=== PATIENT | female | born 1965 | race Caucasian/White ===

== ENCOUNTER → 2018-12-19 13:00 | Outpatient (CLI) | payer OTHER, SELFPAY ==
[2013-07-22 02:31] VITALS: BMI 28.3
--- NOTE | 2018-12-19 | IMM_PTH ---
PATIENT: TOM MAY LOC: [facility] U#:[id number] AGE/SX: 59/F ROOM: RE12/19/[address]: Dr. Xiomara Miguel MD : 1965 BED: DIS: SPEC #: [id number] RECD: 12/23/18 10:00 STATUS: ROSALBA REDaphne #: [id number] SIMI: 12/19/18 00:[address]: Xiomara Miguel DEPT: IMMUNOHISTOCHEMISTRY RECD BY: Alisia Parrish ENTERED: 12/23/18 10:01 SP TYPE: IMMUNO OTHR DR: Dr. Moses Grey MD Tissues: Thyroid gland, NOS Procedures: CK19 (initial) CALPONIN-1 (add) CD56 (add) HBME (add) PHYSICIAN & INSTITUTION [place] [id number] SPECIMEN INFORMATION: Tissue Source: Needle core biopsy, right thyroid Clinical Info: Right thyroid nodules Specimen Number: [id number] CPT code: 11596, 36696 x3 METHODOLOGY: Deparaffinized sections of prefer/formalin-fixed tissue or PAP/DQ stained slides are incubated with monoclonal/polyclonal antibodies/oligonucleotide probes. Localization is made via biotin free immunoperoxidase method. Appropriate controls are performed and reacted as expected. Results on target cell population are indicated in the following table: RESULTS: ANTIBODY / CLONE RESULT CK19 (A53-B/A2.26) negative HBME1 (HBME-1) negative Calponin-1 (TS133J) negative CD56 (123C3.D5) positive These tests were developed and their performance characteristics determined by [facility]. They may not have been cleared or approved by the U.S. Food and Drug Administration. The FDA has determined that such clearance or approval is not necessary. INTERPRETATION: Right thyroid nodule, needle core biopsy: Consistent with benign follicular nodule. LO:jayden 12/24/18
--- NOTE | 2018-12-19 13:00 | FLU_PTH ---
PATIENT: TOM MAY LOC: [facility] U#:[id number] AGE/SX: 59/F ROOM: RE12/19/[address]: Dr. Xiomara Miguel MD : 1965 BED: DIS: SPEC #: [id number] RECD: 12/19/18 16:59 STATUS: ROSALBA PATINODaphne #: [id number] SIMI: 12/19/18 13:[address]: Xiomara Miguel DEPT: CYTOLOGY RECD BY: Alisia Parrish ENTERED: 12/22/18 15:08 SP TYPE: Fluid OTHR DR: Dr. Moses Grey MD Tissues: Thyroid gland, NOS Procedures: Special Stain Group II Surgery Specimen Level IV Cytospin Fluid HEADER OPERATION: Ultrasound guided fine needle aspiration and needle core biopsy, right thyroid PRE-OP DIAGNOSIS: Right thyroid nodules TISSUE SUBMITTED: Right thyroid nodule FNA in formalin (cyst) DIAGNOSIS CYTOLOGY Fine needle aspiration, right thyroid nodule (Cytospin and cell block): Adequate for evaluation. Negative, consistent with benign follicular nodule. AM:jayden 12/23/18 COMMENT Please also see corresponding surgical case [id number]. Case has been reviewed in consultation with Dr. Talamantes who concurs with the above diagnosis. IDC:SJ CYTOLOGY STUDY Slides are reviewed. CYTOLOGY GROSS Received is 40 ml of cloudy brown fluid labeled with the patient's name and and designated per the requisition as right thyroid nodule FNA. Submitted for cytology preparation including cell block. /RB:cc 12/22/18 TC: 5 CPT: 84254, 62657
--- NOTE | 2018-12-19 13:00 | ASPIGT_PTH ---
PATIENT: TOM MAY LOC: [facility] U#:[id number] AGE/SX: 59/F ROOM: RE12/19/[address]: Dr. Xiomara Miguel MD : 1965 BED: DIS: SPEC #: [id number] RECD: 12/19/18 16:59 STATUS: ROSALBA YAS #: [id number] SIMI: 12/19/18 13:[address]: Xiomara Miguel DEPT: SURGICAL PATHOLOGY RECD BY: Alisia Parrish ENTERED: 12/22/18 15:11 SP TYPE: ASP RAD OTHR DR: Dr. Moses Grey MD Tissues: Thyroid gland, NOS Procedures: FNA Specimen Adequacy Special Stain Group II Surgery Specimen Level IV Imprint (control) HEADER OPERATION: Ultrasound guided fine needle aspiration and needle core biopsy, right thyroid PRE-OP DIAGNOSIS: Right thyroid nodules TISSUE SUBMITTED: Needle core biopsy, right thyroid MICROSCOPIC DIAGNOSIS Right thyroid, ultrasound guided needle core biopsy: Consistent with benign follicular nodule. AM:jayden 12/23/18 COMMENT Immunohistochemistry ([id number]) supports the above diagnosis. Fragments of benign skeletal muscle and rare fragment of skin are also present in the biopsy. Please also see corresponding cytology case [id number]. Case has been reviewed in consultation with Dr. Talamantes who concurs with the above diagnosis. IDC:LO MICROSCOPIC DESCRIPTION Slides are reviewed. GROSS DESCRIPTION Received is one container labeled with the patient name and designated right thyroid needle core biopsy. The specimen consists of multiple fragments of frias soft tissue that in aggregate measure 1 x 01 x less than 0.1 cm. The specimen is totally submitted in one cassette. /LO:jayden 12/22/18 TC: 5 CPT: 57470
== END ==
PROVIDERS: Family Provider Family Medicine; PCP Family Medicine; Referring Provider Surgery; Visit Provider Surgery
DX: E04.1 Nontoxic single thyroid nodule (principal)
CPT/HCPCS: 88108; 88172; 88305; 88313; 88341; 88342

== ENCOUNTER → 2019-07-02 | Outpatient (CLI) | payer OTHER, SELFPAY ==
--- NOTE | 2019-07-02 | THYROID_PTH ---
PATIENT: TOM MAY LOC: [facility] U#:[id number] AGE/SX: 53/F ROOM: RE07/02/[address]: Dr. Xiomara Miguel MD : 1965 BED: DIS: 07/02/2019 SPEC #: [id number] RECD: 07/02/19 12:56 STATUS: ROSALBA YAS #: [id number] SIMI: 07/02/19 00:[address]: Xiomara Miguel DEPT: SURGICAL PATHOLOGY RECD BY: Rufus Lyn ENTERED: 07/02/19 12:57 SP TYPE: THYROID OTHR DR: Dr. Moses Grey MD Tissues: Thyroid gland, NOS Procedures: Surgery Specimen Level IV HEADER OPERATION: Right thyroid nodule core biopsy PRE-OP DIAGNOSIS: Right thyroid nodule TISSUE SUBMITTED: Right thyroid nodule core biopsy MICROSCOPIC DIAGNOSIS Right thyroid nodule, core biopsy: Consistent with benign follicular nodule. See comment. LO:sharee 07/03/19 COMMENT The findings may represent adenomatoid nodule. Follicular neoplasm can not be entirely excluded. Correlation with clinical, radiologic findings and appropriate follow up are necessary. Please make reference to previous specimens ([id number]) fine needle aspiration, right thyroid nodule with diagnosis of consistent with benign follicular nodule and ([id number]) right thyroid, ultrasound-guided needle core biopsy with diagnosis of consistent with benign follicular nodule. This case is discussed with Dr. Miguel on 07/03/19. MICROSCOPIC DESCRIPTION Slides are reviewed. GROSS DESCRIPTION Received is one container labeled with the patient's name and not further designated. The specimen consists of multiple irregular fragments of frias soft tissue that in aggregate measure 1 x 0.1 x <0.1 cm. The specimen is totally submitted in one cassette. / LO:sharee 07/02/19 TC:5 CPT: 33597
== END | disposition home or self-care (01) ==
LOC: LABSPEC 12:32
PROVIDERS: PCP Family Medicine; Visit Provider Surgery
DX: E04.1 Nontoxic single thyroid nodule (principal)
CPT/HCPCS: 88305

== ENCOUNTER 2019-10-20 14:23 | Observation (INO) | payer OTHER, SELFPAY ==
--- NOTE | 2019-10-15 10:11 | EKG12_ITS ---
Test Reason : PREOP Blood Pressure : / mmHG Vent. Rate : 073 BPM Atrial Rate : 073 BPM P-R Int : 146 ms QRS Dur : 084 ms QT Int : 388 ms P-R-T Axes : 062 056 049 degrees QTc Int : 427 ms Normal sinus rhythm Normal ECG Confirmed by YING BRAXTON, BASSAM ([id number]), material expeditor DENISE GALLAGHER ([id number]) on 10/19/2019 9:58:14 AM Referred By: Xiomara Miguel Confirmed By:VI HE MD
--- NOTE | 2019-10-19 16:39 | HP.PCM_ITS ---
History and Physical Date of Admission: 10/20/19 Sena Casey 1965 ??? CHIEF COMPLAINT: right thyroid nodule ? HPI: The patient is a 53 year old female presents with palpable right thyroid lesion. Denies taking any previous thyroid hormones. Denies exposure to unusual radiation. Denies swallowing problems. Denies hoarseness. Denies globus symptoms. Denies thyroid cancer in family. Mother had lymphoma. ? Denies TOB Denies history of NM/CVA. Has acid reflux - in the throat has a bubble sensation. ? US guided FNA 07/02/2019 MICROSCOPIC DIAGNOSIS Right thyroid nodule, core biopsy: Consistent with benign follicular nodule. COMMENT The findings may represent adenomatoid nodule. Follicular neoplasm can not be entirely excluded. Correlation with clinical, radiologic findings and appropriate follow up are necessary. ? ? PAST MEDICAL HISTORY ? Heart murmur ? ? Other and unspecified ovarian cyst ? ? Unspecified asthma(493.90) ?Asthma CHILDHOOD ? PAST SURGICAL HISTORY ? DELIVERY ONLY ? 12/23/98, 11/30/2010 ? failure to progress ? COLONOSCOPY ? 10/24/2018 ? EGD ? 10/24/2018 ? EXCISION NOSE POLYP(S),SIMPLE ? ? ? PAST SURGICAL HISTORY OF ? ? ? right elbow repair ? PAST SURGICAL HISTORY OF ? 2000 ? EXCISION OF LESION ON RIGHT CHIN ? REMOVE TONSILS/ADENOIDS,<12 Y/O ? Current Outpatient Medications: ferrous sulfate 325 mg (65 mg iron) tablet Take 1 tablet by mouth once daily. omeprazole (PRILOSEC) 20 mg capsule Take 1 capsule by mouth daily before breakfast. 1/2 hr before meal. COMPOUNDED PRESCRIPTION Balance B tablet. ascorbic acid/collagen hydr (COLLAGEN PLUS VITAMIN C ORAL) Take by mouth. multivit,thx,calcium,iron,mins (MULTIVITAMIN AND MINERAL ORAL) Take 1 tablet by mouth once daily. ? ? ALLERGIES: Sulfa (Sulfonamide Antibiotics) ? PERSONAL HISTORY: Social History Socioeconomic History Marital status: Spouse name: Kane Number of children: 3 Years of education: 12 Highest education level: Not on file Occupational History Occupation: INSURANCE BILLING CLERK Employer: [employer] (formerly [employer]) Comment: multi-handicap K-5 Tobacco Use Smoking status: Never Smoker Smokeless tobacco: Never Used Substance and Sexual Activity Alcohol use: Yes Comment: occasionally,NOT WHILE Drug use: No FAMILY HISTORY ? Cancer Mother lymphoma- ? Hypertension Father ? ? No Known Problems Brother ? ? No Known Problems Brother ? ? No Known Problems Sister ? ? Heart Maternal Grandmother murmur ? Coronary Artery Disease Maternal Grandfather ? ? Cancer Paternal Grandfather? colon cancer ? Hypertension Paternal Grandmother ? ? Osteoporosis Paternal Grandmother ? ? other (anemia) Paternal Grandmother ? ? ? REVIEW OF SYSTEMS: Constitutional: Denies episodes of fever and night sweats. Normal appetite. Neuro: ?Denies DONG, vertigo, dizziness and imbalance. Denies symptoms of neuropathy. HEENT: No recent change in voice, vision or hearing. Resp: Denies cough, wheeze and hemoptysis. Denies shortness of breath at rest. Denies VELIZ. CVS: Denies exertional chest pain, PND, orthopnea and LE edema. GI: Denies dysgeusia. Denies symptoms of stomatitis. Denies dysphagia and odynophagia. Denies reflux, n/v, change in bowel habits and abdominal pain. : Denies dysuria or gross hematuria. No symptoms of bladder outlet obstruction. Endo: Denies hot flashes. Denies polyuria and polydipsia. Denies heat and cold intolerance. Musculoskeletal: Denies bone, back, joint and muscular pain. Derm: Denies rash. Denies jaundice and diffuse pruritis. Heme: Denies unusual bleeding and unexplained bruising. Psych: Normal mood. ? ? PHYSICAL EXAMINATION: General: The patient is 53 year old female, well nourished, well hydrated in no acute distress. The patient is oriented to time, place, and person. VITALS: Blood pressure 120/78, pulse 93, temperature 36.6 ?C (97.8 ?F), weight 78.5 kg (173 lb), SpO2 100 %. Body mass index is 30.27 kg/m?. Head ? Normocephalic. EOM intact with sclera clear and no icterus noted. Mouth with mucus membranes moist. Neck - supple with no jugular venous distention noted. Trachea is midline. No carotid bruits noted. Right thyroid enlargement but no discrete nodules noted. No masses noted. Lungs ? clear to auscultation. Normal breath sounds. No rales/rhonchi/wheezing noted. No labored breathing noted, such as retractions. No cough heard. Heart ? normal S1 and S2 auscultated. No rubs/clicks/murmurs noted. Regular rate. Abdomen ? soft and benign. Normal bowel sounds. Extremities ? no calf tenderness noted. No pitting edema noted. . Skin ? normal skin integrity. Lymph ? no cervical adenopathy detected, no supraclavicular adenopathy detected, no axillary adenopathy detected Neurological ? gait normal, no focal deficits noted. Psych ? calm and appropriate RADIOLOGIC STUDIES: As Noted ? ? IMPRESSION: right thyroid nodule ? PLAN: I have discussed the above with the patient. I have offered right thyroid lobectomy and isthmusectomy. She understands that she may need further surgery if thyroid cancer is found. I have described the surgery to the patient in layman?s terms. I have counseled the patient as to the risks of surgery, including but not limited to: infection, bleeding, seroma, scar tissue, cosmetic deformity, injury to any blood vessels/nerves, injury to the recurrent laryngeal nerves and their sequelae, injury to the parathyroid glands and their sequelae, bleeding requiring further surgery, etc. ? the patient understands. The patient was offered a surgery/procedure. The provider and patient have discussed in detail the risk of exposure to and/or potential harm posed by the COVID-19 virus with having a surgery/procedure at this time versus the risk of delaying the surgery/procedure. It is not possible to know either the risk of delaying the surgery or procedure or chance of getting an infection with perfect accuracy, but a joint decision was made between the patient and the provider to proceed at this time with the scheduled surgery/procedure. She agrees to proceed. I have answered all their questions to their satisfaction and the patient has no further questions.
[2019-10-20] VITALS (8 sets, daily range): BP systolic 123–148; BP diastolic 69–89; PULSE 59–91; RESP 16–18; TEMP 36.3–36.7; O2SAT 95–100; BMI 28.6
--- NOTE | 2019-10-20 | THYROID_PTH ---
PATIENT: TOM MAY LOC: [facility] U#:[id number] AGE/SX: 53/F ROOM: [place]315 RE10/20/[address]: Dr. Xiomara Miguel MD : 1965 BED: 1 DIS: 10/21/2019 SPEC #: [id number] RECD: 10/20/19 13:53 STATUS: ROSALBA REQ #: [id number] SIMI: 10/20/19 00:[address]: Xiomara Miguel DEPT: SURGICAL PATHOLOGY RECD BY: Diane Tristan ENTERED: 10/21/19 07:37 SP TYPE: THYROID OTHR DR: Dr. Moses Grey MD Tissues: A - Thyroid gland, NOS B - Thyroid gland, NOS Procedures: Frozen Section (charge) Surgery Specimen Level IV Surgery Specimen Level V HEADER OPERATION: Thyroid lobectomy, isthmusectomy PRE-OP DIAGNOSIS: Right thyroid nodule, follicular neoplasm TISSUE SUBMITTED: A - Rule out right thyroid tissue, FS at 1349, B - Right lobe of thyroid and isthmus FROZEN SECTION DIAGNOSIS A. Rule out thyroid tissue: Thyroid tissue. SJ:sharee 10/20/19 MICROSCOPIC DIAGNOSIS A. Rule out thyroid tissue, biopsy: Benign thyroid tissue. B. Right lobe of thyroid and isthmus, thyroid lobectomy and isthmusectomy: Multinodular goiter with a dominant adenomatoid nodule (3 cm in greatest dimension). Focal mild chronic inflammation. SJ:sharee 10/22/19 COMMENT Please make reference to previous specimens ([id number]) fine needle aspiration, right thyroid nodule with diagnosis of consistent with benign follicular nodule and ([id number]) right thyroid, ultrasound-guided needle core biopsy with diagnosis of benign follicular nodule and ([id number]) right thyroid nodule, core biopsy with diagnosis of consistent with benign follicular nodule. Case has been reviewed in consultation with Dr. Saenz who concurs with the above diagnosis. IDC:AM MICROSCOPIC DESCRIPTION Slides are reviewed. GROSS DESCRIPTION A - Received fresh for frozen section diagnosis labeled with the patient's name is a specimen designated rule out thyroid tissue. The specimen consists of a piece of frias-pink soft tissue measuring 1 x 2.5 x 0.1 cm. The entire specimen is submitted for frozen section diagnosis in one cassette. / B - Received in fixative is one container labeled with the patient's name and designated right lobe of thyroid and isthmus. The specimen consists of a thyroid lobectomy specimen in two pieces weighing in aggregate 11.1 gm. The lobectomy specimen measures 4 x 2 x 2.5 cm and detached piece of tissue measures 2 x 1 x 1 cm. The thyroid lobe is inked as follows: anterior surface - blue, posterior surface - black. Section of the detached piece of tissue consistent with isthmus does not reveal any mass lesion. Section of the thyroid lobe reveals a hemorrhagic nodule covering almost the entire lobe measuring 3 x 2.5 x 1.5 cm. The entire specimen is submitted in ten cassettes as follows: 1 & 2 - detached piece of tissue, 3-10 - thyroid lobe (3 containing most superior portion and 10 containing most inferior portion). / LO:sharee 10/21/19 TC:5 CPT: 09327, 92781, 96636
[2019-10-20 10:34] LABS: Internal QC Validated? YES +Cl - CLEAR BKGD; Pregnancy, Urine Negative Negative
[2019-10-20] MEDS: Lactated Ringers 1,000 ML 75 ML IV ×3 (11:00→18:02)
--- NOTE | 2019-10-20 11:59 | OP.PCM_ITS ---
Report of Operation Date of Procedure: 10/20/19 Pre-Operative Diagnosis: right thyroid nodule - follicular neoplasm of uncertain behavior Post-Operative Diagnosis: same - pathology pending Surgery/Procedure Performed:: right thyroid lobectomy and isthmusectomy Description of Surgical Findings:: large right lobe of thyroid gland ham marker: Ml Mendez Type of Anesthesia:: General Anesthesiologist: Erika Luna Specimen's removed: right thyroid gland and isthmus Drains: 10 Fr round passive drain Estimated Blood Loss (mL): 40 Fluids Replaced: 1300 ml RL Description of Procedure: After informed consent was obtained, the patient was brought to the Operating Room. Appropriate time out protocol was followed. She was then placed in the supine position. She was then placed under GETA. The patient was then positioned with arms tucked and appropriate padding, with neck extension, and in the slightly reverse Trendelenburg position. The ultrasound machine was used for real time imaging. The transducer was placed on the patient's neck to delineate the right lobe of the thyroid gland so as to smith the skin for the optimum incision site for the procedure. The neck and upper chest were then prepped with a sterile surgical skin preparation and appropriate sterile surgical drapes were placed. The previous site of the marked skin incision was identified and a low cervical collar incision was made with a 15 blade scalpel and carried down to the subcutaneous tissues using Bovie in the electrocautery mode. The platysma was divided along the incision and then flaps were created superiorly to the cricoid cartilage level and inferiorly to the sternal notch. The fascia overlying the strap muscles was then divided along the midline. The right thyroid gland was thusly approached. The superior pole vessels were taken were dissected out individually and then ligaclips were placed and then the vessels were transected. The thyroid gland was then rotated medially the middle vein was identified and ligated with ligaclips and use of the Harmonic scalpel. The inferior pole was then identified and the vessels were ligated with ligaclips and use of the Harmonic scalpel. The recurrent laryngeal nerve was then identified along its course and protected from injury. The superior pole was then retracted inferiorly and the pole vessels were ligated with ligaclips and then transected. The right lobe was smaller than the left and thus dissection was easier. The thyroid gland was rotated medially and then dissected off the trachea. This was carefully done to avoid any injury to the recurrent laryngeal nerves. The inferior parathyroid gland and the superior parathyroid glands were identified and also protected. The right thyroid gland was then completely removed and forward to pathology for analysis. Hemostasis was carefully controlled with electrocautery avoiding any injury to the recurrent laryngeal nerves and the parathyroid glands. For minimal muscular oozing, Surgicel was used for hemostasis. No active bleeding was noted at time of closure. A small 10 Croatian drain was then placed in the right thyroid bed and brought out through a separate stab incision. The fascia of the strap muscles was then reapproximated along the midline using Vicryl suture. The platysma muscle was then reapproximated in a transverse fashion using interrupted 2-0 Vicryl suture. The skin incision was then reapproximated using 4-0 Monocryl in a running subcuticular fashion. The drain was brought out through the middle portion of the incision and sutured to the skin using nylon suture. The skin closure was reinforced using Dermibond and the drain sutured to the skin using nylon suture. Prior to extubation, a glide scope examination was done. The vocal cords were noted to adduct bilaterally. The patient was then extubated. She was brought to the Recovery Room in stable condition. - Complications none noted - Admit VTE Documentation VTE Present on Admission: Yes VTE Mechan Device Prophylaxis: SCD's
[2019-10-20] MEDS: HYDROcodone Bitartrate/Apap 5/325 Tablet PO ×2 (16:30→21:55)
[2019-10-21 04:30] VITALS: BP 127/71; PULSE 70; RESP 16; TEMP 36.9; O2SAT 98
[2019-10-21] MEDS: HYDROcodone Bitartrate/Apap 5/325 Tablet PO (04:35)
[2019-10-21] MEDS: Lactated Ringers 1,000 ML 75 ML IV (07:06)
--- NOTE | 2019-10-21 07:58 | PCM.PN.SRG ---
Subjective: patient feeling overall well, voicing appropriately, soreness in the area, drain output serosanguinous < 20 ml - Physical Exam Vitals/I&O's: Vital Signs Temp Pulse Resp BP Pulse Ox 98.5 F 70 16 127/71 H 98 10/21/19 04:30 10/21/19 04:30 10/21/19 04:30 10/21/19 04:30 10/21/19 04:30 Oxygen Flow Rate (L/min) 4 Oxygen Delivery Method Room Air Weight: 74.6 kg Body Mass Index (BMI) 28.6 Intake and Output for Last 24 Hours 10/19/19 10/20/19 10/21/19 23:59 23:59 23:59 Intake Total 2106 / 2706 2079 Output Total 503 / 513 Balance 1603 / 2193 2059 General: Alert, Oriented x3 Oral: Moist Mucosa Neck: Supple, - - wound intact, dermibond in place Laboratory Results 10/20/19 10:15: Urine Test Negative 10/21/19 06:05: Calcium 9.0 Current Medications Hydrocodone Bitart/Acetaminophen ([place] 5mg-325mg) 1 tablet PO Q4H PRN PRN PRN Reason: Pain Score 1-5/10 Last Admin: 10/21/19 04:35 Dose: 1 tablet Documented by: Lactated Ringer's () 1,000 mls @ 75 mls/hr IV .[id number] TONY Last Admin: 10/21/19 07:06 Dose: 75 mls/hr Documented by: Sodium Chloride () 250 mls @ 15 mls/hr IV .[id number] PRN PRN Reason: Saline Flush Sodium Chloride () 250 mls @ 15 mls/hr IV .[id number] PRN PRN Reason: Additional IVPB Infusion Morphine Sulfate () 2 mg IV Q1H PRN PRN PRN Reason: Pain Score 6-10/10 Ondansetron HCl (Zofran) 4 mg IV Q8H PRN PRN PRN Reason: NAUSEA/VOMITING Sodium Chloride () 10 - 40 ml IV UD PRN PRN Reason: SALINE FLUSH Medical Necessity - Tobacco Use Smoking Status: Never smoker Tobacco Use: Non-smoker Assessment/Plan Impression: s/p right thyroid lobectomy Plan: d/c to home follow up with me next week via virtual visit
--- NOTE | 2019-10-21 08:00 | PCM.DC.GS ---
Discharge Diet: No Restrictions - as per tolerated Discharge Activity: Return to Normal Activity, May not drive while taking narcotic pain medications. Call your doctor if your incision/area has: Continuous Slow Oozing, Foul Smelling Discharge Call your doctor if you observe: Fever of 101 or Higher Additional Dressing/Incision Instructions:: Leave dressing in place. may get wet in shower. Do not scrub in the area - rinse well and pat dry. do not soak - no tub baths/swimming Additional Instructions: can take alternating doses of ibuprofen and acetaminophen if you do not want to take narcotic pain medication 650 mg acetaminophen (Tylenol) alternating every 3-4 hours with 600 mg ibuprofen (Motrin) Allergies/Adverse Reactions: Allergies Sulfa (Sulfonamide Antibiotics) Adverse Reaction (Intermediate, Verified 10/20/19 10:29) Rash Medications to take at Discharge Collagenase Clostridium Hist. [Collagenase] 1 dose PO DAILY 10/13/19 Ferrous Sulfate 325 mg PO QODAY 10/13/19 Hydrocodone/Acetaminophen [[place] 5-325 Tablet] 1 each PO Q12H PRN PRN 3 Days #6 tablet 10/21/19 The following prescriptions were given: Hydrocodone/Acetaminophen [[place] 5-325 Tablet] 1 each PO Q12H PRN PRN 3 Days #6 tablet PRN Reason: Pain Score 6-10/10 Transmission Status: Received by [facility] FELDM[facility]-[address] [facility] Primary Care Physician: Moses Grey MD [Primary Care Provider] - Test Results: Test results from this visit will be discussed in further detail at your follow-up appointment, if applicable. Please Follow Up With: Xiomara Miguel MD - please call if any questions/concerns When: a virtual visit will be set up for you
--- NOTE | 2019-10-21 10:00 | PHA.DC.MC ---
Pharmacy Service has performed discharge medication reconciliation and counseling for this patient. 1. HYDROCODONE/ACETAMINOPHEN 5/325MG PO Q12H PRN PAIN 6-10/10 X 3 DAYS The patient's discharge medication list was reviewed for discrepancies and discrepancies were resolved. Home Medications Collagenase Clostridium Hist. [Collagenase] 1 dose PO DAILY 10/13/19 Ferrous Sulfate 325 mg PO QODAY 10/13/19 Hydrocodone/Acetaminophen [[place] 5-325 Tablet] 1 ea PO Q12H PRN PRN 3 Days #6 tab 10/21/19 The patient was counseled on the following discharge medications and changes in medications for homegoing were reviewed. The Reason for Use, instructions for use, and potential side effects were reviewed for all new medications. The patient's questions regarding all of their medications were answered. The patient was able to verbally demonstrate an understanding of their discharge medications.
[2019-10-21 10:15] VITALS: BP 126/78; PULSE 60; RESP 16; TEMP 36.7; O2SAT 100
== END 2019-10-21 10:27 | disposition home or self-care (01) ==
LOC: SDC 14:29 → MS3 14:29
PROVIDERS: Anesthesiology; Admitting Provider Surgery; PCP Family Medicine; Referring Provider Surgery; Visit Provider Surgery
PROC: (CPT 60220; principal; 2019-10-20 11:30)
DX: E04.2 Nontoxic multinodular goiter (principal); K21.9 Gastro-esophageal reflux disease without esophagitis; J45.909 Unspecified asthma, uncomplicated; Z79.899 Other long term (current) drug therapy
CPT/HCPCS: 00320; 60220; 36415; 81025; 82310; 87635; 88305; 88307; 88331; 93005; 96360; 96361; 99218; G2023; J7120; G0378; G0379; J2405; U0003